=== PATIENT | female | born 1980 | race Caucasian/White ===

== ENCOUNTER 2017-12-25 13:08 | Emergency (ER) | payer OTHER ==
[~2017-12-25] VITALS: Ht 157.5 cm; Wt 83.9 kg
[~2017-12-25 13:08] MED LIST: CYCLOBENZAPRINE10 MG PO; ESCITALOPRAM OXA5 MG PO; HYDROCODON-ACE1 EA10 PO; IBUPROFEN800 MG PO; NORCO 5-325 TA1 EACH PO; OLANZAPINE5 MG PO; OMEPRAZOLE40 MG PO; OSTERA TABLET1 EACH PO; PRAZOSIN HCL1 MG PO; PROMETHAZINE HC25 M1 PO; VALIUM5 MG PO
[2017-12-25] MEDS ORDERED: ZANTAC150 MG PO (13:31)
[2017-12-25] MEDS ORDERED: MECLIZINE HCL25 MG PO (14:14)
== END 2017-12-25 14:23 | disposition home or self-care (01) ==
LOC: ED 13:08
DX: H83.09 Labyrinthitis, unspecified ear (principal); F17.200 Nicotine dependence, unspecified, uncomplicated
CPT/HCPCS: 81001; 99283